=== PATIENT | female | born 1955 | race Caucasian/White ===

== ENCOUNTER → 2020-03-22 17:50 | Outpatient (CLI) | payer MEDICARE, BC, SELFPAY | PROVIDERS: PCP Nurse Practitioner Family; Referring Provider Nurse Practitioner Family; Visit Provider Nurse Practitioner Family | DX: U07.1 COVID-19 (principal) | CPT/HCPCS: 87635; C9803; U0003 ==

== ENCOUNTER → 2020-07-20 | Outpatient (CLI) | payer MEDICARE, BC, SELFPAY | END | disposition home or self-care (01) | LOC: LABSPEC 14:45 | PROVIDERS: PCP Nurse Practitioner Family; Referring Provider Family Medicine; Visit Provider Family Medicine | DX: Z20.822 Contact with and (suspected) exposure to COVID-19 (principal) | CPT/HCPCS: 87635; C9803; U0002 ==

== ENCOUNTER 2021-06-28 08:38 | Outpatient (CLI) | payer MEDICARE, BC, SELFPAY ==
--- NOTE | 2021-06-28 08:42 | BI_ITS ---
MAMMOGRAPHY - BILATERAL SCREENING REASON FOR EXAM: Female, 66 years old. Routine annual screening examination. PERTINENT HISTORY: Non-contributory. TECHNIQUE: Digital bilateral breast rl (3D mammographic acquisition) in the CC and MLO projections. 2-D mediolateral oblique (MLO) and craniocaudad (CC) views of both breasts were obtained. CAD: Full Field Digital Mammography with Computer Added Detection was performed. COMPARISON: Comparison is made with prior examination 04/12/2020. FINDINGS: Breast Composition: There are scattered areas of fibroglandular density. There is a 1.6 cm x 1.6 cm density in the upper lateral aspect of the left breast. Correlation with ultrasound is recommended. No other significant abnormalities are identified. BI/SCRN MAMM (CAD)W/RL BILAT IMPRESSION: 1.6 x 1.6 cm density in the upper lateral aspect of the left breast. Correlation with ultrasound is recommended. ASSESSMENT CATEGORY: BIRADS Category 0: Incomplete. Need additional imaging evaluation. A letter regarding these results will be sent to the patient by the facility within 30 days. Approximately 10% of breast cancers are not detected by mammography. A normal mammogram should not delay biopsy of a clinically suspicious abnormality. [id number] Electronically Signed: Bertrand Cevallos MD at 9:40 EST ,
== END 2021-06-28 23:59 | disposition home or self-care (01) ==
LOC: OPBI 08:40
PROVIDERS: PCP Internal Medicine; Visit Provider Internal Medicine
DX: Z12.31 Encounter for screening mammogram for malignant neoplasm of breast (principal)
CPT/HCPCS: 77063; 77067

== ENCOUNTER 2021-06-30 13:21 | Outpatient (CLI) | payer MEDICARE, BC, SELFPAY ==
--- NOTE | 2021-06-30 13:26 | US_ITS ---
STUDY: ULTRASOUND BREAST - LEFT REASON FOR EXAM: Female, 66 years old. Abnormal screening mammogram. TECHNIQUE: Axial and longitudinal images of the LEFT breast were performed with a high resolution ultrasound transducer. # OF IMAGES: [id number] COMPARISON: Comparison is made with prior mammogram dated 06/28/2021. FINDINGS: LEFT Breast: The upper outer quadrant of the left breast was examined by ultrasound. There is dense fibroglandular tissue. No sonographic abnormality is seen. Additional mammographic views of the left breast will be obtained. US/Breast Limited Unilateral IMPRESSION: Unremarkable sonogram. Additional mammographic views will be obtained. ASSESSMENT CATEGORY: BIRADS Category 0: Incomplete. Need additional imaging evaluation. A letter regarding these results will be sent to the patient by the facility within 30 days. Electronically Signed: Bertrand Cevallos MD at 12:46 EST ,
--- NOTE | 2021-06-30 14:44 | BI_ITS ---
MAMMOGRAPHY - UNILATERAL DIAGNOSTIC: LEFT BREAST REASON FOR EXAM: Female, 66 years old. Abnormal screening mammogram. PERTINENT HISTORY: Non-contributory. TECHNIQUE: 90 degree lateral view of the left breast was obtained. CAD: Full Field Digital Mammography with Computer Added Detection was performed. COMPARISON: Comparison is made with prior study dated 06/28/2021. FINDINGS: Breast Composition: There are scattered areas of fibroglandular density. There are no dominant masses or suspicious calcifications. No other significant abnormalities are identified. BI/DIAG MAMM W/CAD, UNILAT IMPRESSION: Negative unilateral diagnostic mammogram. Yearly followup mammogram recommended. (A) ASSESSMENT CATEGORY: BIRADS Category 1: Negative. A letter regarding these results will be sent to the patient by the facility within 30 days. Approximately 10% of breast cancers are not detected by mammography. A normal mammogram should not delay biopsy of a clinically suspicious abnormality. Electronically Signed: Bertrand Cevallos MD at 15:03 EST ,
== END 2021-06-30 23:59 | disposition home or self-care (01) ==
LOC: OPUS 13:23
PROVIDERS: PCP Internal Medicine; Visit Provider Internal Medicine
DX: R92.2 Inconclusive mammogram (principal)
CPT/HCPCS: 76642; 77065

== ENCOUNTER → 2022-11-13 | Outpatient (CLI) | payer MEDICARE, BC, SELFPAY ==
--- NOTE | 2022-11-13 13:24 | RAD_ITS ---
INDICATION: M51.37/M51.38 EXAMINATION/TECHNIQUE: X-RAY - XR Spine Lumbar 2 or 3 Views COMPARISON: None FINDINGS: There is multilevel degenerative disc disease with moderately severe disc height narrowing at L2-3, L3-4, L4-5, and L5-S1, accompanied by moderately large anterolateral endplate osteophytes at those levels. There is mild kyphosis at L2-3. Slight depression of the right inferior L2 endplate as well as left superior L4 endplate, resulting in a minor S-shaped mid lumbar scoliosis as well. Multilevel hypertrophic degenerative changes of the facet joints are also noted. Multilevel degenerative changes are also seen in the visualized lower thoracic spine surgical clips of prior cholecystectomy incidentally noted in the medial right upper quadrant. RAD/Lumbar Spine 2 or 3 Views IMPRESSION: Multilevel degenerative changes as described. Electronically Signed: Mann Narvaez MD at 13:43 EDT Reading Location ID and State: [id number] / Unknown , Service support ,
== END | disposition home or self-care (01) ==
LOC: RAD 13:21
PROVIDERS: PCP Internal Medicine; Referring Provider Anesthesiology Pain Medicine; Visit Provider Anesthesiology Pain Medicine
DX: M51.37 Other intervertebral disc degeneration, lumbosacral region (principal); M51.36 Other intervertebral disc degeneration, lumbar region
CPT/HCPCS: 72100

== ENCOUNTER → 2022-12-19 | Outpatient (CLI) | payer MEDICARE, BC, SELFPAY ==
--- NOTE | 2022-12-19 06:46 | MRI_ITS ---
STUDY: MRI LUMBAR SPINE WITHOUT CONTRAST REASON FOR EXAM: Female, 67 years old. LUMBAR RADICULOPATHY, left thigh pain TECHNIQUE: Standardized fat and water weighted pulse sequences were obtained in the sagittal and axial planes. COMPARISON: Lumbar spine radiographs 11/13/2022. FINDINGS: T10-T11: (Sagittal only). Normal endplates. Mild disc space height narrowing. Mild ventral extradural defect due to posterior bulging annulus. Normal central canal. The bilateral intervertebral neural foramina are not included. T11-T12: (Sagittal only). Broad Schmorl''s node in the T11 inferior endplate. Normal vertebral endplates. Mild disc space height narrowing. Minimal ventral extradural defect due to small posterior bulging annulus. Normal central canal and bilateral intervertebral neural foramina. T12-L1: (Sagittal only). Normal endplates. Normal disc height, hydration and morphology. Normal central canal and bilateral intervertebral neural foramina. Normal lumbar lordosis. There is no substantial scoliosis. Normal conus medullaris that terminates at the upper L1 vertebral body level. L1-2: Normal endplates. Normal disc height, hydration and morphology. Normal bilateral facet joints. Normal central canal and bilateral lateral recesses. Normal bilateral intervertebral neural foramina. L2-3: Modic type II degenerative vertebral marrow fat infiltration underneath the vertebral endplates. Mild disc space height narrowing. Prominent ventral axial defect is posterior bulging annulus fragment or disc protrusion in the axial projection. Mild asymmetric degenerative facet arthropathy. Mild dorsal epidural lipomatosis. Mild central canal stenosis with an AP canal diameter of 9 mm. Mild stenosis of the bilateral lateral recesses. Normal bilateral intervertebral neural foramina. Small right renal cysts and small left renal cyst. L3-4: Mixed Modic type I and type III degenerative changes in vertebral marrow underneath the vertebral endplates. Pronounced disc space height narrowing. Mild degenerative retrolisthesis of L3 on L4 and prominent posterior bulging annulus. Pronounced central canal stenosis with an AP canal diameter of 6 mm. Moderate left degenerative facet arthropathy. Mild right degenerative facet arthropathy. Normal bilateral lateral recesses. Moderately pronounced stenosis of the left intervertebral neural foramen with suspicious impingement of the left L3 nerve. Mild stenosis of the right intervertebral neural foramen. L4-5: Modic type II degenerative vertebral marrow fat infiltration underneath the vertebral endplates. Pronounced disc space height narrowing. Mild ventral extradural defect due to mild degenerative retrolisthesis of L4 on L5 and asymmetric posterior bulging annulus, increasing towards left L5 supra pedicular level foraminal zone. This accounts for the moderate stenosis of the left intervertebral neural foramen without impingement of the left L4 nerve. Mild stenosis of the right intervertebral neural foramen. Mild left degenerative facet arthropathy more than right. Mild dorsal epidural lipomatosis. Mild central canal stenosis with an AP canal diameter 9 mm. Normal bilateral lateral recesses. L5-S1: Mild irregularity of the L5 inferior endplate without signal alteration. Normal S1 superior endplate. Pronounced disc space height narrowing. Mild degenerative retrolisthesis of L5 on S1. Small posterior bulging annulus. Mild asymmetric degenerative facet arthropathy. Normal central canal and bilateral lateral recesses. Moderate stenosis of the bilateral intervertebral neural foramina. Normal visualized sacral ala. Moderate diffuse fatty infiltration infiltration of the posterior paraspinal muscles at L5-S1 disc space level. MRI/Spine Lumbar (Routine) IMPRESSION: 1. Pronounced central canal stenosis at L3-L4 disc space level with an AP canal diameter of 6 mm, mild degenerative retrolisthesis of L3 on L4 with prominent posterior bulging annulus and moderately pronounced stenosis of the left intervertebral neural foramen with suspicious impingement of the left L3 nerve. 2. Moderate stenosis of the left intervertebral neural foramen without impingement of the left L4 nerve due to mild degenerative retrolisthesis of L4 on L5, pronounced disc space height narrowing and asymmetric posterior bulging annulus increasing towards the left L5 supra pedicular level foraminal zone. Mild central canal stenosis with an AP canal diameter of 9 mm. 3. Moderate stenosis of the bilateral L5-S1 intervertebral neural foramina due to pronounced disc space height narrowing, small posterior bulging annulus and mild degenerative retrolisthesis of L5 on S1. 4. Mild central canal stenosis at L2-L3 disc space level with an AP canal diameter 9 mm and prominent posterior bulging annulus. 5. No MRI evidence of lumbar extruded disc fragments. 6. Bilateral renal cysts. Electronically Signed: Cm Roca MD at 13:32 EDT ,
== END | disposition home or self-care (01) ==
LOC: MRI 06:41
PROVIDERS: Referring Provider Anesthesiology Pain Medicine; Visit Provider Anesthesiology Pain Medicine
DX: M54.16 Radiculopathy, lumbar region (principal)
CPT/HCPCS: 72148

== ENCOUNTER 2023-02-22 11:30 | Outpatient (RCR) | payer MEDICARE, BC, SELFPAY ==
--- NOTE | 2022-11-23 11:48 | HP.PTEVAL_ITS ---
Patient's Visit Information Visit Information Visit Information: CINDY ASENCIO is a 67 year old F referred to Physical Therapy by Dr. Yazmin Moyer MD with a diagnosis of Back Pain. Date of Evaluation: 11/23/22 Physical Therapist: Connie Pedro DPT Visit Plan Frequency: 2x /Week Duration: 4 Weeks Plan: Aquatics- focus on LE and core strength/stabilization Subjective Subjective: Patient reports that she has her left hip replacement in 2020 and he cut through the muscles and right in 2021 and did not cut the muscles. She also has a bad lumbar spine- she was told to get her hips done first- it has not alleviated her back pain and has exacerbated her left leg. She feels that her left leg may give out and not support her. She can't sit for too long or stand for too long. She has a lot of OA in her spine. Her goal was to have an injection- but she has to have an MRI and to get and MRI she needs PT. She has had an x-ray (Multilevel degenerative changes as described). She has had therapy with both hips and has not continued her exercises. Worst in last 48 hours: 12/07 Agg: bending forwards. Eases: sitting (an hour) any chair. Best: 07/07. She has a hard time standing to cook. The pain is located along the belt line and it radiates down the buttocks on both sides but more on the left and down to the quads. She reports the pain is dull and achy. No Pain that radiates past the knee. The left foot has always been N/T due to a broken ankle on that side. No loss of change in bowel or bladder. She does have some shanell ce issues with no falls- she does have a cane that she uses due to the pain and weakness in her legs. Work: does not work. She use to move around a lot but the pain is causing her to be more sedentary. Sleep: sometimes disturbed- side sleeper. PMHx: only change since 11/18/22 is Golo medication. Objective Objective: Posture: FH, RS- can correct with verbal cues but is unable to maintain in both sitting and standing Gait: forward posture- antalgic- decreased stance on the left LE- no AD but does report use of cane HR/TR: able with UE A SLS: weight shift- more stable on the right LE Sit to Stand: requires UE A to rise from chair Sensation: WNL to gross touch bilateral LE ROM: Lumbar: Flexion: hands to mid burdick and requires UE to bring herself back to upright position, Extn: neutral SB and Rotation: decreased by 75% without pain Strength: Core: poor Left: Hip: 4-/5 throughout Knee: 4/5, Ankle: 4+/5 Right: Hip: 4/5 throughout Knee: 4+/5, Ankle: 4+/5 Palpation: tender along quads bilateral left>right, left gluts and SI joint- no pain along paraspinals of the lumbar spine Flex: HS: mod, Gastroc: mod Special Tests L/S Slump test left side: Negative L/S Slump test right side: Negative L/S Left Straight Leg Raise: Positive L/S Right Straight Leg Raise: Positive Balance/Special Test Scores Oswestry Low Back Score: 16 Goals Goal 1:: Patient will be I with HEP and progression Goal Time Frame: 4-6 Weeks Goal 2:: Patient will maintain proper posture t/o tx session to demo increased core s/s Goal Time Frame: 4-6 Weeks Goal 3:: Patient will have equal strength in bilateral LE Goal Time Frame: 4-6 Weeks Goal 4:: Patient will report ability to stand for more than 60 min without pain Goal Time Frame: 4-6 Weeks Goal 5:: Patient will report 80% improvement Goal Time Frame: 4-6 Weeks Rehabilitation Potential Physical Therapy Diagnosis: Patient presents with hypomobility- she has decreased LE and core strength/stabilization, flex and muscular endurance leading to poor posture and increased pain with ADL's. Rehabilitation Potential: Fair Anticipated Interventions Patient/Client Instruction: Educate patient on: Benefits of Fitness Program Therapeutic Exercise to Include: Strength training, Endurance training, Balance training, Coordination, Agility training, Body mechanics, Postural training, Flexibilty training, Gait and locomotor training, Neuromotor development, In an aquatic setting , Passive ROM, Active ROM, Dynamic Lumbar Stabilization and Scapular Strength/Stabilization For the Purpose of:: To improve muscle performance and motor function Text: Thank you for the opportunity to evaluate your patient. For Medicare and Medicare HMO plans, please review the plan of care and approve it. It will need to be FAXED BACK to us at [phone] for Medicare purposes. For Medicare only, by signing this I certify the plan of care. Please let me know if there are questions or concerns regarding this plan of care. Physician Signature: Date:
--- NOTE | 2022-12-21 11:51 | HP.PTREVAL_ITS ---
Re-Evaluation Intro: Dr. Yazmin Moyer MD, It has been my pleasure to treat CINDY ASENCIO over the last 9 visits for Back Pain. Please see the progress note below for an update on the physical therapy plan of care! Subjective Subjective: Patient reports that she had her MRI on Sunday. She felt the shots help at first- but she has had some things happen but her left leg is really hurting and weak- she feels that she is limping a lot more than and it doesn't w ant to hold her. She felt the water therapy in the deep end was really helpful. She goes back to see Dr. Moyer on Jan 04. Objective Objective/Function: Posture: FH, RS- can correct with verbal cues but is unable to maintain in both sitting and standing Gait: forward posture- antalgic- decreased stance on the left LE- no AD but does report use of cane HR/TR: able with UE A SLS: weight shift- more stable on the right LE Sit to Stand: requires UE A to rise from chair Sensation: WNL to gross touch bilateral LE ROM: Lumbar: Flexion: hands to mid burdick and requires UE to bring herself back to upright position, Extn: neutral SB and Rotation: decreased by 75% without pain Strength: Core: poor Left: Hip: 4-/5 throughout Knee: 4/5, Ankle: 4+/5 Right: Hip: 4/5 throughout Knee: 4+/5, Ankle: 4+/5 Palpation: tender along quads bilateral left>right, left gluts and SI joint- no pain along paraspinals of the lumbar spine Flex: HS: mod, Gastroc: mod Special Tests L/S Slump test left side: Negative L/S Slump test right side: Negative L/S Left Straight Leg Raise: Positive L/S Right Straight Leg Raise: Positive Plan Plan Plan: Continue with POC 2x a week for 4 weeks and follow up with MD Romeo- focus on LE and core strength/stabilization Balance/Gait/Functional tests Balance/Special Test Scores Oswestry Low Back Score: 18 Goals Goals Goal 1:: Patient will be I with HEP and progression Goal Time Frame: 4-6 Weeks Goal 2:: Patient will maintain proper posture t/o tx session to demo increased core s/s Goal Time Frame: 4-6 Weeks Goal 3:: Patient will have equal strength in bilateral LE Goal Time Frame: 4-6 Weeks Goal 4:: Patient will report ability to stand for more than 60 min without pain Goal Time Frame: 4-6 Weeks Goal 5:: Patient will report 80% improvement Goal Time Frame: 4-6 Weeks Anticipated Interventions Anticipated Interventions Patient/Client Instruction: Educate patient on: Benefits of Fitness Program Therapeutic Exercise to Include: Strength training, Endurance training, Balance training, Coordination, Agility training, Body mechanics, Postural training, Flexibilty training, Gait and locomotor training, Neuromotor development, In an aquatic setting , Passive ROM, Active ROM, Dynamic Lumbar Stabilization and Scapular Strength/Stabilization For the Purpose of:: To improve muscle performance and motor function Re-Evaluation Ending Re-evaluation ending: Please do not hesitate to contact me at [phone] by phone or if you have questions or concerns regarding this new plan of care! Sincerely, Connie Pedro DPT
--- NOTE | 2023-01-18 12:27 | HP.PTREVAL ---
Re-Evaluation Intro: Dr. Yazmin Moyer MD, It has been my pleasure to treat CINDY ASENCIO over the last 16 visits for Back Pain. Please see the progress note below for an update on the physical therapy plan of care! Subjective Subjective: She was pain free on Sunday and Sunday- she went to [facility] last night due to being pain free and she did too much walking- she had to take a sleeping pill last night to get to sleep. Walking excessively long distances are her trigger. She feels that she is 90% better. She feels that she has been working on a progression to get into the shallower water and feels that she can keep moving forwards with that. She meets with the surgeon next week. She plans to do the deep exercises indep. Objective Objective/Function: Posture: FH, RS- can correct with verbal cues but is unable to maintain in both sitting and standing Gait: forward posture- antalgic- decreased stance on the left LE- no AD but does report use of cane HR/TR: able with UE A SLS: weight shift- more stable on the right LE Sit to Stand: requires UE A to rise from chair Sensation: WNL to gross touch bilateral LE ROM: Lumbar: Flexion: hands to mid burdick and requires UE to bring herself back to upright position, Extn: neutral SB and Rotation: decreased by 75% without pain Strength: Core: poor Left: Hip: 4-/5 throughout Knee: 4/5, Ankle: 4+/5 Right: Hip: 4/5 throughout Knee: 4+/5, Ankle: 4+/5 Palpation: tender along quads bilateral left>right, left gluts and SI joint- no pain along paraspinals of the lumbar spine Flex: HS: mod, Gastroc: mod Special Tests L/S Slump test left side: Negative L/S Slump test right side: Negative L/S Left Straight Leg Raise: Positive L/S Right Straight Leg Raise: Positive Plan Plan Plan: 01/18/23: Cont with aquatic- move ex to shallow water- can be I with HEP in deep water Continue with POC 2x a week for 4 weeks and follow up with MD Romeo- focus on LE and core strength/stabilization Balance/Gait/Functional tests Balance/Special Test Scores Oswestry Low Back Score: 24 Goals Goals Goal 1:: Patient will be I with HEP and progression Goal Time Frame: 4-6 Weeks Goal 2:: Patient will maintain proper posture t/o tx session to demo increased core s/s Goal Time Frame: 4-6 Weeks Goal 3:: Patient will have equal strength in bilateral LE Goal Time Frame: 4-6 Weeks Goal 4:: Patient will report ability to stand for more than 60 min without pain Goal Time Frame: 4-6 Weeks Goal 5:: Patient will report 80% improvement Goal Time Frame: 4-6 Weeks Anticipated Interventions Anticipated Interventions Patient/Client Instruction: Educate patient on: Benefits of Fitness Program Therapeutic Exercise to Include: Strength training, Endurance training, Balance training, Coordination, Agility training, Body mechanics, Postural training, Flexibilty training, Gait and locomotor training, Neuromotor development, In an aquatic setting , Passive ROM, Active ROM, Dynamic Lumbar Stabilization and Scapular Strength/Stabilization For the Purpose of:: To improve muscle performance and motor function Re-Evaluation Ending Re-evaluation ending: Please do not hesitate to contact me at [phone] by phone or if you have questions or concerns regarding this new plan of care! Sincerely, Connie Pedro DPT
--- NOTE | 2023-02-15 11:52 | HP.PTREVAL ---
Re-Evaluation Intro: Dr. Yazmin Moyer MD, It has been my pleasure to treat CINDY ASENCIO over the last 20 visits for Back Pain. Please see the progress note below for an update on the physical therapy plan of care! Subjective Subjective: Patient reports that she feels that she is doing well- she had injections and her back is doing good. She has thigh pain but she feels that is from her hip. She thinks her core is getting stronger. Objective Objective/Function: Posture: FH, RS- can correct with verbal cues but is unable to maintain in both sitting and standing Gait: forward posture- antalgic- decreased stance on the left LE- HR/TR: able with UE A SLS: weight shift- more stable on the right LE Sit to Stand: requires UE A to rise from chair Sensation: WNL to gross touch bilateral LE ROM: Lumbar: Flexion: hands to mid burdick and requires UE to bring herself back to upright position, Extn: neutral SB and Rotation: decreased by 75% without pain Strength: Core: poor Left: Hip: 4/5 throughout Knee: 4/5, Ankle: 4+/5 Right: Hip: 4/5 throughout Knee: 4+/5, Ankle: 4+/5 Palpation: tender along quads bilateral left>right, left gluts and SI joint- no pain along paraspinals of the lumbar spine Flex: HS: mod, Gastroc: mod Plan Plan Plan: 02/15/23: Continue with aquatic ex in shallow water with progression to I HEP- will add some cardio on land with NuStep and Recumbent Bike 01/18/23: Cont with aquatic- move ex to shallow water- can be I with HEP in deep water Continue with POC 2x a week for 4 weeks and follow up with MD Romeo- focus on LE and core strength/stabilization Balance/Gait/Functional tests Balance/Special Test Scores Oswestry Low Back Score: 13 Goals Goals Goal 1:: Patient will be I with HEP and progression Goal Time Frame: 4-6 Weeks Goal Progress: Progressing Goal 2:: Patient will maintain proper posture t/o tx session to demo increased core s/s Goal Time Frame: 4-6 Weeks Goal Progress: Progressing Goal 3:: Patient will have equal strength in bilateral LE Goal Time Frame: 4-6 Weeks Goal Progress: Progressing Goal 4:: Patient will report ability to stand for more than 60 min without pain Goal Time Frame: 4-6 Weeks Goal Progress: Progressing Goal 5:: Patient will report 80% improvement Goal Time Frame: 4-6 Weeks Goal Progress: Progressing Anticipated Interventions Anticipated Interventions Patient/Client Instruction: Educate patient on: Benefits of Fitness Program Therapeutic Exercise to Include: Strength training, Endurance training, Balance training, Coordination, Agility training, Body mechanics, Postural training, Flexibilty training, Gait and locomotor training, Neuromotor development, In an aquatic setting , Passive ROM, Active ROM, Dynamic Lumbar Stabilization and Scapular Strength/Stabilization For the Purpose of:: To improve muscle performance and motor function Re-Evaluation Ending Re-evaluation ending: Please do not hesitate to contact me at [phone] by phone or if you have questions or concerns regarding this new plan of care! Sincerely, SUSAN SchwarzT
== END 2023-02-22 19:00 | disposition home or self-care (01) ==
LOC: PT 11:30
PROVIDERS: Referring Provider Anesthesiology Pain Medicine; Visit Provider Anesthesiology Pain Medicine
DX: M54.9 Dorsalgia, unspecified (principal)
CPT/HCPCS: 97113; 97162; 97164

== ENCOUNTER 2023-11-29 11:00 | Outpatient (RCR) | payer MEDICARE, BC, SELFPAY ==
--- NOTE | 2023-09-28 09:31 | HP.PTEVAL_ITS ---
Patient's Visit Information Visit Information Visit Information: CINDY ASENCIO is a 68 year old F referred to Physical Therapy by Dr. Chris Gutiérrez DO with a diagnosis of SPINAL STENOSIS LUMBOSACRAL ,LUMBAR NERVE IMPINGEMENT,DISC DISORDER LUMBAR. Date of Evaluation: 09/28/23 Physical Therapist: Orlando Holt, PT, Cert MDT, OCS Visit Plan Frequency: 2x /Week Duration: 4 Weeks Plan: PT INTERVENTIONS AQUATIC THERAPY FOR DLS, POSTURAL EX'S , BLE STRENGTHENING AND LUMBAR ROM Subjective Subjective: This 68 y/o female presents to physical therapy with lumbar radicular symptoms. Patient has lumbar pain ~ 5 years but symptoms worse past several months especially falling on commode . Patient seen Family DR recommended PT and some manipulation and had x-rays. Patient sees pain management . Patient takes pain medication. Pain located lumbar to glut. Aggravating walking ,standing > 2mins ,sitting difficulty with bending/lifting Uses cane for back pain and balance . Alleviating factors rest. Coughing/sneezing -. Bowel/bladder-. Patient sleeping okay. Patient has had PT with Aquatics which helped. Denies paresthesia/tingling -. Patient pain affects QOL and function . Patient goals to decrease pain. Patient has h/o THR bilateral. SOCIAL: VOCATION: retired Pain Bilateral Back: Pain Intensity (Out of 10): 6 Pain Intensity Range: 10 Objective Objective: POSTURE: mild forward posture hips/knees flexed NEURO: denies paresthesia/tingling ,reflexes L3-4,L4-5,L5-S1 1/3 PALAPTION: unremarkable GAIT: ambulates with cane slow elisa hips/knees flexed FLEXABILITY: hamstrings WFL MMT: quads/hams 4/5 ,hip flexion 3+/5 ,ankle 4/5 LUMBAR ROM: flexion min loss ,extension min/mod loss ,side glides min loss Special Tests L/S Slump test left side: Negative L/S Slump test right side: Negative L/S Left Straight Leg Raise: Negative L/S Right Straight Leg Raise: Negative Balance/Special Test Scores Oswestry Low Back Score: 30 Goals Goal 1:: Patient to be I with HEP in Aquatics Goal Time Frame: 4-6 Weeks Goal 2:: Patient to demonstrate 40% improvement with less pain and improved function Goal Time Frame: 4-6 Weeks Goal 3:: Patient to improve BLE strength to 4/5 to improve gait Goal Time Frame: 4-6 Weeks Goal 4:: Patient to improve back oswestry score by 3-5 points to improve QOL Goal Time Frame: 4-6 Weeks Goal 5:: Patient to improve lumbar ROM for function of recovery Goal Time Frame: 4-6 Weeks Rehabilitation Potential Physical Therapy Diagnosis: This patient has lumbar pain with radicular symptoms in glut with lumbar stenosis worse with walking /standing ,pain is affected with positioning and motion testing thus benefit from skilled PT Rehabilitation Potential: Good Anticipated Interventions Patient/Client Instruction: Educate patient on: Condition and Plan of Care For the Purpose of:: To decrease pain, To increase ROM, To improve muscle performance and motor function, To improve ability to perform ADL's, To increase tolerance to activity/condition/position, To improve ability of physical actions for home/community/work/leisure, To improve health of tissue, To decrease soft tissue restriction, To increase flexibility/ROM, To improve endurance and To improve balance Therapeutic Exercise to Include: Strength training, Endurance training, Balance training, Body mechanics, Postural training, Flexibilty training, In an aquatic setting and Dynamic Lumbar Stabilization Comment: BLE For the Purpose of:: To decrease pain, To increase ROM, To improve muscle performance and motor function, To increase tolerance to activity/condition/position, To improve ability of physical actions for home/community/work/leisure, To improve gait and locomotor functions, To improve health of tissue, To decrease soft tissue restriction, To increase flexibility/ROM, To improve endurance and To improve balance Text: Thank you for the opportunity to evaluate your patient. For Medicare and Medicare HMO plans, please review the plan of care and approve it. It will need to be FAXED BACK to us at [phone] for Medicare purposes. For Medicare only, by signing this I certify the plan of care. Please let me know if there are questions or concerns regarding this plan of care. Physician Signature: Date:
--- NOTE | 2023-10-26 11:02 | HP.PTREVAL_ITS ---
Re-Evaluation Intro: Dr. Chris Gutiérrez, DO, It has been my pleasure to treat CINDY ASENCIO over the last 10 visits for SPINAL STENOSIS LUMBOSACRAL ,LUMBAR NERVE IMPINGEMENT,DISC DISORDER LUMBAR. Please see the progress note below for an update on the physical therapy plan of care! Subjective Subjective: Plan to see DR Queen pain management Patient therapy has helped some Patient is able to stand extended in kitchen Anb able to do steps easier ,but have problems with balance Objective Objective/Function: * Patient will cont to benefit from skilled PT to decrease pain and improve function thus goals cont to be appropriate and adjusted* POSTURE: mild forward posture hips/knees flexed NEURO: denies paresthesia/tingling ,reflexes L3-4,L4-5,L5-S1 1/3 PALAPTION: unremarkable GAIT: ambulates with cane slow elisa hips/knees flexed FLEXABILITY: hamstrings WFL MMT: quads/hams 4/5 ,hip flexion 4-/5 ,ankle 4/5 LUMBAR ROM: flexion min loss ,extension min/mod loss ,side glides min loss Plan Plan Plan: PT INTERVENTIONS AQUATIC THERAPY FOR DLS, POSTURAL EX'S , BLE STRENGTHENING AND LUMBAR ROM Balance/Gait/Functional tests Balance/Special Test Scores Oswestry Low Back Score: 25 Goals Goals Goal 1:: Patient to be I with HEP in Aquatics Goal Time Frame: 4-6 Weeks Goal Progress: Progressing Goal 2:: Patient to demonstrate 40% improvement with less pain and improved function ( NEW GOAL) Goal Time Frame: 4-6 Weeks Goal 3:: Patient to improve BLE strength to 4/5 to improve gait Goal Time Frame: 4-6 Weeks Goal Progress: Progressing Goal 4:: Patient to improve back oswestry score by 3-5 points to improve QOL( NEW GOALS) Goal Time Frame: 4-6 Weeks Goal 5:: Patient to improve lumbar ROM for function of recovery Goal Time Frame: 4-6 Weeks Goal Progress: Progressing Anticipated Interventions Anticipated Interventions Patient/Client Instruction: Educate patient on: Condition and Plan of Care For the Purpose of:: To decrease pain, To increase ROM, To improve muscle performance and motor function, To improve ability to perform ADL's, To increase tolerance to activity/condition/position, To improve ability of physical actions for home/community/work/leisure, To improve health of tissue, To decrease soft tissue restriction, To increase flexibility/ROM, To improve endurance and To improve balance Therapeutic Exercise to Include: Strength training, Endurance training, Balance training, Body mechanics, Postural training, Flexibilty training, In an aquatic setting and Dynamic Lumbar Stabilization Comment: BLE For the Purpose of:: To decrease pain, To increase ROM, To improve muscle performance and motor function, To increase tolerance to activity/condition/position, To improve ability of physical actions for home/community/work/leisure, To improve gait and locomotor functions, To improve health of tissue, To decrease soft tissue restriction, To increase flexibility/ROM, To improve endurance and To improve balance Re-Evaluation Ending Re-evaluation ending: Please do not hesitate to contact me at [phone] by phone or Fax: if you have questions or concerns regarding this new plan of care! Sincerely, Orlando Holt, PT, Cert MDT, OCS
--- NOTE | 2023-11-29 11:22 | HP.PTDCSUM ---
Discharge Summary D/C summary: It has been my pleasure to treat CINDY ASENCIO referred by Dr. Chris Gutiérrez DO, with the diagnosis of SPINAL STENOSIS LUMBOSACRAL ,LUMBAR NERVE IMPINGEMENT,DISC DISORDER LUMBAR for a total of 17 visit(s). Discharge Date: 11/29/23 Please see the following information for a summary of their discharge status. Subjective Subjective: Doing well ,water ex's has helped Seen Dr Queen for hip from falling caudal injection Possible joining [place] Pain Bilateral Back: Pain Intensity (Out of 10): 0 R Buttock: Pain Intensity (Out of 10): 1 Overall Improvement % Improvement: 70 Objective Objective/Function: POSTURE: mild forward posture hips/knees flexed NEURO: denies paresthesia/tingling ,reflexes L3-4,L4-5,L5-S1 1/3 PALAPTION: unremarkable GAIT: ambulates with cane slow elisa hips/knees flexed FLEXABILITY: hamstrings WFL MMT: quads/hams 4/5 ,hip flexion 4-/5 ,ankle 4/5 LUMBAR ROM: flexion min loss ,extension min/mod loss ,side glides min loss Goals Goal 1:: Patient to be I with HEP in Aquatics Goal Progress: Goal Met Goal 2:: Patient to demonstrate 40% improvement with less pain and improved function ( NEW GOAL) Goal Progress: Goal Met Goal 3:: Patient to improve BLE strength to 4/5 to improve gait Goal Progress: Goal Met Goal 4:: Patient to improve back oswestry score by 3-5 points to improve QOL( NEW GOALS) Goal Progress: Goal Met Goal 5:: Patient to improve lumbar ROM for function of recovery Goal Progress: Goal Met Plan Plan: D/C D/C Information Discharge Comments: Aquatic therapy d/c sentence: If there are questions or concerns regarding this patient's physical therapy, please feel free to call me at [phone]. Thank you for the referral of this patient. Sincerely, Orlando Holt, PT, Cert MDT, OCS Balance/Gait/Functional tests Balance/Special Test Scores Oswestry Low Back Score: 9 Improvement % Improvement: 70
== END 2023-11-29 19:00 | disposition home or self-care (01) ==
LOC: PT 11:00
DX: M48.07 Spinal stenosis, lumbosacral region (principal); M54.16 Radiculopathy, lumbar region; M51.9 Unspecified thoracic, thoracolumbar and lumbosacral intervertebral disc disorder
CPT/HCPCS: 97113; 97162; 97530